=== PATIENT | male | born 2005 | race Caucasian/White ===

== ENCOUNTER 2023-02-06 09:41 | Observation (INO) ==
[2023-02-06 10:47] LABS: Basophils # (auto) 0.03 K/uL (0.00-0.20); Basophils % (auto) 0.4 %; Eosinophils # (auto) 0.17 K/uL (0.00-0.50); Eosinophils % (auto) 2.2 %; Hematocrit (blood only) 46.1 % (42.0-52.0); Hemoglobin 16.2 g/dl (14.0-18.0); Immature Granulocytes # (auto) 0.03 K/uL (0.01-0.20); Immature Granulocytes % (auto) 0.4 %; Lymphocytes # (auto) 1.78 K/uL (1.20-3.40); Lymphocytes % (auto) 23.4 %; Mean Corpuscular Hgb Conc 35.1 g/dL (32.0-36.0); Mean Corpuscular Volume 88.1 fL (80.0-100.0); Mean Platelet Volume 11.6 fL (9.4-12.4); Monocytes % (auto) 9.2 %; Neutrophils # (auto) 4.91 K/uL (1.40-6.50); Neutrophils % (auto) 64.4 %; Platelet Count 222 K/uL (130-400); RDW Coefficient of Variation 13.1 % (11.5-14.5); RDW Standard Deviation 42.5 fL (36.4-46.3); Red Blood Count 5.23 M/uL (4.70-6.10); White Blood Count 7.62 K/ul (4.8-10.8)
[2023-02-06] MEDS ORDERED: ONDANSETRON INJ 2 MG/ML 2 ML VIAL IV STA (13:07)
[2023-02-06] MEDS ORDERED: dexAMETHasone**PF** 10 MG/ML VIAL IV ONE (13:07)
[2023-02-06] MEDS ORDERED: KETOROLAC TROMETHAMINE 15 MG/ML VIAL IV STA (13:07)
[2023-02-06] MEDS ORDERED: ACETAMINOPHEN 500 MG TAB PO STA (13:07)
--- NOTE | 2023-02-06 13:08 | Emergency Department Note ---
Impression & Plan Headache, Viral meningitis ED Provider Note NAME: MELISSA RINALDI AGE: 17 SEX: M : 2005 ARRIVES VIA: Walk-In INFORMANT: Patient, ED PROVIDER(S): Aaron Escobedo MD CHIEF COMPLAINT: Headache MEDICAL DECISION MAKING: Patient presents due to concern for headache and upper respiratory associated symptoms with concern for possibility of meningitis. Low suspicion for bacterial meningitis. The patient may exhibit signs of meningeal irritation after further discussion the patient would like proceed with an LP. IV was established blood was obtained and the patient was treated symptomatically. The patient still did have associated headache. CT head obtained which was unremarkable. Patient's bio fire was positive for entero and rhinovirus. Patient's blood work is otherwise grossly unremarkable with a normal white count H&H platelet count and normal kidney function and electrolytes. LP was attempted by myself but was unsuccessful. I did speak with Dr. Leon with radiology who confirmed that Drew Patel PA-C with interventional radiology would be able to perform an IR guided LP. Patient was signed out to Dr. Landeros pending the results of the patient's lumbar puncture and reassessment. Procedures: Lumbar Puncture performed by Dr. Escobedo Indication: Rule out meningitis. Verbal consent was obtained after the risks and benefits were explained, including but not limited to headache, bleeding/clotting, scarring, infection, pain, and bone/joint/nerve damage. At this time, the risks of the procedure are less than the risks of NOT performing the procedure. A time out was taken and the correct patient and site identified. The patient was placed in the left lateral decubitus position and the back was prepped with betadine and draped in the standard fashion. The L4 intervertebral space was identified, anesthetized locally with 1% lidocaine without epinephrine, and the spinal needle was inserted through the skin with the bevel parallel to the dural fibers. The needle was carefully advanced but was unsuccessful. The L3 interviewed vertebral space was identified and anesthetized with 1% lidocaine. A spinal was inserted in the appropriate fashion a second time but no fluid was obtained. The stylet was replaced and the needle was removed. A bandaid was placed and the patient was placed in the supine position. The patient tolerated the procedure well and there were no complications. Discussion w/ other healthcare providers: Dr. Hannah with [facility] orthopedics Dr. Rosa emergency medicine Dr. Leon with radiology Prior /Outside records reviewed: None Differential diagnosis: Migraine headache, tension headache, dehydration, meningitis, sinusitis, CO expo sure, ICH, infection, tumor, sinus thrombosis as well as others were considered. Diagnostics, as interpreted by me: ECG: None Cardiac monitoring: An order was placed for continuous cardiac monitoring. The monitor shows a rate of 85 with sinus rhythm. Patient was placed on pulse oximetry Medical decision rules: None Imaging studies: I informally interpreted the patient's CT head which does not show obvious ICH with formal report to follow. HPI: Pt is a 17 yo male who presents to the ED for headache. Pt states that he started to feel ill on Sunday and has since started to take multiple cold and flu medications and ibuprofen. Since then he has gotten a headache that has been progressively worse by the day. He states this morning when he woke up, the headache was so bad that he nearly vomited. He states the pain is all over his whole head and is worse when he moves his eyes around. He denies any vision changes, no chest pain or shortness of breath. No rashes. He denies alcohol use over the past few days and states he has been keeping hydrated. He notes that he plays football and last week had a concussion on Sunday, but was cleared to play again yesterday and that he feels his concussion symptoms like the headache he had then are different from now and have resolved. He notes frontal sinus pressure but no rhinorrhea, sore throat, or cough. He notes that he got his men ingitis vaccine. No other complaints at this time. Patient was referred here by Dr. Hannah PAST MEDICAL HISTORY: No pertinent past medical history PAST SURGICAL HISTORY: No pertinent past surgical history SOCIAL HISTORY: [employer] student. Does play varsity football. Denies alcohol tobacco or drug use. HOME MEDICATIONS: See Below ALLERGIES: See Below VITALS: See Below PHYSICAL EXAMINATION: GENERAL: NAD, non-toxic. EYE EXAM: Normal conjunctiva. PERRL, no anisocoria and EOM's grossly intact w/o pain. Mild photophobia. OROPHARYNX: Moist mucus membranes, grossly normal dentition. NECK: Supple, no nuchal rigidity, no adenopathy, non-tender. No signs of meningismus. FROM of the neck with good chin to chest and neck extension. No stridor. LUNGS: Clear to auscultation. Normal chest wall mechanics. HEART: NSR, no MRG. ABDOMEN: Abdomen soft, non-tender, no masses, no rebound or guarding. BACK: No CVA TTP. SKIN: No rashes and no bruising. UPPER EXTREMITIES: Upper extremities are grossly normal. LOWER EXTREMITIES: Grossly normal, no edema. Possible positive Kernig's. NEURO EXAM: A&O x3, cranial nerves II-XII grossly intact, normal speech, moves all 4 extremities. Good bxnuvo-es-cutx, no drift and no sensory deficits. Past Med/Surg History Social History Smoking Status: Never smoker Second Hand Exposure: No; Do You Dip or Chew Tobacco: No; Hx Alcohol Use: Yes Alcohol type: hard liquor Hx Substance Use: No Preferred Language: Welsh Communication Ability: Effective Stress Engineer Required: No Beliefs That Will Affect Care: None Current Living Situation Comment: appartment Feels Safe at Home: Yes Assistive Devices: None Allergies Allergies Allergy/AdvReac Type Severity Reaction Status Date / Time amoxicillin Allergy Intermediate Hives Unverified 02/06/23 14:50 Results & Data (ED) Vital Signs Vital Signs - 24 hr 02/06/23 10:05 Temperature 36.5 C Temperature Source Temporal Artery Scan Pulse Rate 62 Respiratory Rate 18 Respiratory Effort / Characteristics Non-Labored Respiratory Depth Normal Blood Pressure 125/82 Blood Pressure Mean 96 Pulse Oximetry 98 Oxygen Delivery Method Room Air Sepsis Recent Fever Within 48 Hours No Sepsis New/Unexplained Change in Mental Status No Sepsis Action Taken by Nursing No Action Required Home Medications Current Medication List: was personally reviewed by me Laboratory Data Attestation: I reviewed the patient's lab results. 02/06/23 10:33 02/06/23 12:46 Lab Results 02/06/23 02/06/23 02/06/23 Range/Units 10:33 10:33 10:33 WBC 7.62 (4.8-10.8) K/ul RBC 5.23 (4.70-6.10) M/uL Hgb 16.2 (14.0-18.0) g/dl Hct 46.1 (42.0-52.0) % MCV 88.1 (80.0-100.0) fL MCH 31.0 (25.0-34.0) pg MCHC 35.1 (32.0-36.0) g/dL RDW Std Deviation 42.5 (36.4-46.3) fL RDW Coeff of Shlomo 13.1 (11.5-14.5) % Plt Count 222 (130-400) K/uL MPV 11.6 (9.4-12.4) fL Immature Gran % (Auto) 0.4 % Neut % (Auto) 64.4 % Lymph % (Auto) 23.4 % [place] % (Auto) 9.2 % Eos % (Auto) 2.2 % Baso % (Auto) 0.4 % Neut # (Auto) 4.91 (1.40-6.50) K/uL Lymph # (Auto) 1.78 (1.20-3.40) K/uL [place] # (Auto) 0.70 H (0.11-0.59) K/uL Eos # (Auto) 0.17 (0.00-0.50) K/uL Baso # (Auto) 0.03 (0.00-0.20) K/uL Immature Gran # (Auto) 0.03 (0.01-0.20) K/uL Sodium Cancelled Cancelled Potassium Cancelled Cancelled Chloride Cancelled Cancelled Carbon Dioxide Cancelled Cancelled Anion Gap Cancelled Cancelled BUN Cancelled Cancelled Creatinine Cancelled Cancelled Est Cr Clr Drug Dosing Cancelled Cancelled Est GFR ( Amer) Cancelled Cancelled Est GFR (Non-Af Amer) Cancelled Cancelled BUN/Creatinine Ratio Cancelled Cancelled Glucose Cancelled Cancelled Lactate (0.4-2.0) mmol/L Calcium Cancelled Cancelled Total Bilirubin Cancelled Cancelled AST Cancelled Cancelled ALT Cancelled Cancelled Alkaline Phosphatase Cancelled Cancelled Total Protein Cancelled Cancelled Albumin Cancelled Cancelled Globulin Cancelled Cancelled Albumin/Globulin Ratio Cancelled Cancelled Fluid Comment CSF Appearance CSF Color Xanthrochromic CSF WBC (Auto) (0-5) /uL CSF WBC (0-5) CSF RBC (Auto) (0-) /uL CSF RBC (0-) CSF Cell Count Tube # CSF Mononuclear WBCs % % CSF Polynuclear WBCs % % CSF Chemistry Tube # CSF Glucose (40-70) mg/dl CSF Total Protein (15-45) mg/dl CSF C.neoform/gat PCR (NotDetected) CSF CMV DNA (PCR) (NotDetected) CSF Enterovirus (PCR) (NotDetected) CSF E. coli K1 (PCR) (NotDetected) CSF H. influenzae (PCR) (NotDetected) CSF HSV I (PCR) (NotDetected) CSF HSV II (PCR) (NotDetected) CSF HHV 6 (PCR) (NotDetected) CSF L.monocytogenes PCR (NotDetected) CSF N. meningitidis PCR (NotDetected) CSF Parechovirus (PCR) (NotDetected) CSF S. agalactiae (PCR) (NotDetected) CSF S. pneumoniae (PCR) (NotDetected) CSF VZV DNA (PCR) (NotDetected) Adenovirus (PCR) (NotDetected) B. pertussis DNA (PCR) (NotDetected) B.parapertussis DNA PCR (NotDetected) C. pneumoniae DNA (PCR) (NotDetected) Coronavirus OC43 (PCR) (NotDetected) Coronavirus HKU1 (PCR) (NotDetected) Coronavirus 229E (PCR) (NotDetected) SARS-CoV-2 (PCR) (NotDetected) Coronavirus NL63 (PCR) (NotDetected) Human Metapneumovir PCR (NotDetected) Influenza Type A (PCR) (NotDetected) Influenza Type B (PCR) (NotDetected) M. pneumoniae (PCR) (NotDetected) Parainfluenza 1 (PCR) (NotDetected) Parainfluenza 2 (PCR) (NotDetected) Parainfluenza 3 (PCR) (NotDetected) Parainfluenza 4 (PCR) (NotDetected) RSV (PCR) (NotDetected) Entero/Rhino (PCR) (NotDetected) Staphylococcus sp PCR (NotDetected) mecA/C-Methicil Resis Gene (NotDetected) Staph epidermidis (PCR) (NotDetected) Bld Cult ID Panel PCR (NotDetected) 02/06/23 02/06/23 02/06/23 Range/Units 12:46 13:36 15:25 WBC (4.8-10.8) K/ul RBC (4.70-6.10) M/uL Hgb (14.0-18.0) g/dl Hct (42.0-52.0) % MCV (80.0-100.0) fL MCH (25.0-34.0) pg MCHC (32.0-36.0) g/dL RDW Std Deviation (36.4-46.3) fL RDW Coeff of Shlomo (11.5-14.5) % Plt Count (130-400) K/uL MPV (9.4-12.4) fL Immature Gran % (Auto) % Neut % (Auto) % Lymph % (Auto) % [place] % (Auto) % Eos % (Auto) % Baso % (Auto) % Neut # (Auto) (1.40-6.50) K/uL Lymph # (Auto) (1.20-3.40) K/uL [place] # (Auto) (0.11-0.59) K/uL Eos # (Auto) (0.00-0.50) K/uL Baso # (Auto) (0.00-0.20) K/uL Immature Gran # (Auto) (0.01-0.20) K/uL Sodium 137 Potassium 4.7 Chloride 103 Carbon Dioxide 29 Anion Gap 5 BUN 15 Creatinine 1.06 Est Cr Clr Drug Dosing 141.3 Est GFR ( Amer) 117.3 Est GFR (Non-Af Amer) 101.2 BUN/Creatinine Ratio 14.2 Glucose 94 Lactate (0.4-2.0) mmol/L Calcium 10.3 Total Bilirubin 0.5 AST 24 ALT 26 Alkaline Phosphatase 101 Total Protein 7.3 Albumin 4.5 Globulin 2.8 Albumin/Globulin Ratio 1.6 Fluid Comment CSF Appearance CSF Color Xanthrochromic CSF WBC (Auto) (0-5) /uL CSF WBC (0-5) CSF RBC (Auto) (0-) /uL CSF RBC (0-) CSF Cell Count Tube # CSF Mononuclear WBCs % % CSF Polynuclear WBCs % % CSF Chemistry Tube # CSF Glucose (40-70) mg/dl CSF Total Protein (15-45) mg/dl CSF C.neoform/gat PCR Not Detected (NotDetected) CSF CMV DNA (PCR) Not Detected (NotDetected) CSF Enterovirus (PCR) DETECTED A* (NotDetected) CSF E. coli K1 (PCR) Not Detected (NotDetected) CSF H. influenzae (PCR) Not Detected (NotDetected) CSF HSV I (PCR) Not Detected (NotDetected) CSF HSV II (PCR) Not Detected (NotDetected) CSF HHV 6 (PCR) DETECTED A* (NotDetected) CSF L.monocytogenes PCR Not Detected (NotDetected) CSF N. meningitidis PCR Not Detected (NotDetected) CSF Parechovirus (PCR) DETECTED A* (NotDetected) CSF S. agalactiae (PCR) Not Detected (NotDetected) CSF S. pneumoniae (PCR) Not Detected (NotDetected) CSF VZV DNA (PCR) Not Detected (NotDetected) Adenovirus (PCR) Not Detected (NotDetected) B. pertussis DNA (PCR) Not Detected (NotDetected) B.parapertussis DNA PCR Not Detected (NotDetected) C. pneumoniae DNA (PCR) Not Detected (NotDetected) Coronavirus OC43 (PCR) Not Detected (NotDetected) Coronavirus HKU1 (PCR) Not Detected (NotDetected) Coronavirus 229E (PCR) Not Detected (NotDetected) SARS-CoV-2 (PCR) Not Detected (NotDetected) Coronavirus NL63 (PCR) Not Detected (NotDetected) Human Metapneumovir PCR Not Detected (NotDetected) Influenza Type A (PCR) Not Detected (NotDetected) Influenza Type B (PCR) Not Detected (NotDetected) M. pneumoniae (PCR) Not Detected (NotDetected) Parainfluenza 1 (PCR) Not Detected (NotDetected) Parainfluenza 2 (PCR) Not Detected (NotDetected) Parainfluenza 3 (PCR) Not Detected (NotDetected) Parainfluenza 4 (PCR) Not Detected (NotDetected) RSV (PCR) Not Detected (NotDetected) Entero/Rhino (PCR) DETECTED A* (NotDetected) Staphylococcus sp PCR (NotDetected) mecA/C-Methicil Resis Gene (NotDetected) Staph epidermidis (PCR) (NotDetected) Bld Cult ID Panel PCR (NotDetected) 02/06/23 02/06/23 02/06/23 Range/Units 15:25 15:25 18:45 WBC (4.8-10.8) K/ul RBC (4.70-6.10) M/uL Hgb (14.0-18.0) g/dl Hct (42.0-52.0) % MCV (80.0-100.0) fL MCH (25.0-34.0) pg MCHC (32.0-36.0) g/dL RDW Std Deviation (36.4-46.3) fL RDW Coeff of Shlomo (11.5-14.5) % Plt Count (130-400) K/uL MPV (9.4-12.4) fL Immature Gran % (Auto) % Neut % (Auto) % Lymph % (Auto) % [place] % (Auto) % Eos % (Auto) % Baso % (Auto) % Neut # (Auto) (1.40-6.50) K/uL Lymph # (Auto) (1.20-3.40) K/uL [place] # (Auto) (0.11-0.59) K/uL Eos # (Auto) (0.00-0.50) K/uL Baso # (Auto) (0.00-0.20) K/uL Immature Gran # (Auto) (0.01-0.20) K/uL Sodium Potassium Chloride Carbon Dioxide Anion Gap BUN Creatinine Est Cr Clr Drug Dosing Est GFR ( Amer) Est GFR (Non-Af Amer) BUN/Creatinine Ratio Glucose Lactate 1.5 (0.4-2.0) mmol/L Calcium Total Bilirubin AST ALT Alkaline Phosphatase Total Protein Albumin Globulin Albumin/Globulin Ratio Fluid Comment CSF Appearance Clear CSF Color Colorless Xanthrochromic No xanthochromia CSF WBC (Auto) 13 H* (0-5) /uL CSF WBC 18 H* (0-5) CSF RBC (Auto) 0 (0-) /uL CSF RBC 2 (0-) CSF Cell Count Tube # 3 CSF Mononuclear WBCs % 90 % CSF Polynuclear WBCs % 10 % CSF Chemistry Tube # 1 CSF Glucose 54 (40-70) mg/dl CSF Total Protein 65.0 H (15-45) mg/dl CSF C.neoform/gat PCR (NotDetected) CSF CMV DNA (PCR) (NotDetected) CSF Enterovirus (PCR) (NotDetected) CSF E. coli K1 (PCR) (NotDetected) CSF H. influenzae (PCR) (NotDetected) CSF HSV I (PCR) (NotDetected) CSF HSV II (PCR) (NotDetected) CSF HHV 6 (PCR) (NotDetected) CSF L.monocytogenes PCR (NotDetected) CSF N. meningitidis PCR (NotDetected) CSF Parechovirus (PCR) (NotDetected) CSF S. agalactiae (PCR) (NotDetected) CSF S. pneumoniae (PCR) (NotDetected) CSF VZV DNA (PCR) (NotDetected) Adenovirus (PCR) (NotDetected) B. pertussis DNA (PCR) (NotDetected) B.parapertussis DNA PCR (NotDetected) C. pneumoniae DNA (PCR) (NotDetected) Coronavirus OC43 (PCR) (NotDetected) Coronavirus HKU1 (PCR) (NotDetected) Coronavirus 229E (PCR) (NotDetected) SARS-CoV-2 (PCR) (NotDetected) Coronavirus NL63 (PCR) (NotDetected) Human Metapneumovir PCR (NotDetected) Influenza Type A (PCR) (NotDetected) Influenza Type B (PCR) (NotDetected) M. pneumoniae (PCR) (NotDetected) Parainfluenza 1 (PCR) (NotDetected) Parainfluenza 2 (PCR) (NotDetected) Parainfluenza 3 (PCR) (NotDetected) Parainfluenza 4 (PCR) (NotDetected) RSV (PCR) (NotDetected) Entero/Rhino (PCR) (NotDetected) Staphylococcus sp PCR (NotDetected) mecA/C-Methicil Resis Gene (NotDetected) Staph epidermidis (PCR) (NotDetected) Bld Cult ID Panel PCR (NotDetected) 02/06/23 Range/Units 19:15 WBC (4.8-10.8) K/ul RBC (4.70-6.10) M/uL Hgb (14.0-18.0) g/dl Hct (42.0-52.0) % MCV (80.0-100.0) fL MCH (25.0-34.0) pg MCHC (32.0-36.0) g/dL RDW Std Deviation (36.4-46.3) fL RDW Coeff of Shlomo (11.5-14.5) % Plt Count (130-400) K/uL MPV (9.4-12.4) fL Immature Gran % (Auto) % Neut % (Auto) % Lymph % (Auto) % [place] % (Auto) % Eos % (Auto) % Baso % (Auto) % Neut # (Auto) (1.40-6.50) K/uL Lymph # (Auto) (1.20-3.40) K/uL [place] # (Auto) (0.11-0.59) K/uL Eos # (Auto) (0.00-0.50) K/uL Baso # (Auto) (0.00-0.20) K/uL Immature Gran # (Auto) (0.01-0.20) K/uL Sodium Potassium Chloride Carbon Dioxide Anion Gap BUN Creatinine Est Cr Clr Drug Dosing Est GFR ( Amer) Est GFR (Non-Af Amer) BUN/Creatinine Ratio Glucose Lactate (0.4-2.0) mmol/L Calcium Total Bilirubin AST ALT Alkaline Phosphatase Total Protein Albumin Globulin Albumin/Globulin Ratio Fluid Comment CSF Appearance CSF Color Xanthrochromic CSF WBC (Auto) (0-5) /uL CSF WBC (0-5) CSF RBC (Auto) (0-) /uL CSF RBC (0-) CSF Cell Count Tube # CSF Mononuclear WBCs % % CSF Polynuclear WBCs % % CSF Chemistry Tube # CSF Glucose (40-70) mg/dl CSF Total Protein (15-45) mg/dl CSF C.neoform/gat PCR (NotDetected) CSF CMV DNA (PCR) (NotDetected) CSF Enterovirus (PCR) (NotDetected) CSF E. coli K1 (PCR) (NotDetected) CSF H. influenzae (PCR) (NotDetected) CSF HSV I (PCR) (NotDetected) CSF HSV II (PCR) (NotDetected) CSF HHV 6 (PCR) (NotDetected) CSF L.monocytogenes PCR (NotDetected) CSF N. meningitidis PCR (NotDetected) CSF Parechovirus (PCR) (NotDetected) CSF S. agalactiae (PCR) (NotDetected) CSF S. pneumoniae (PCR) (NotDetected) CSF VZV DNA (PCR) (NotDetected) Adenovirus (PCR) (NotDetected) B. pertussis DNA (PCR) (NotDetected) B.parapertussis DNA PCR (NotDetected) C. pneumoniae DNA (PCR) (NotDetected) Coronavirus OC43 (PCR) (NotDetected) Coronavirus HKU1 (PCR) (NotDetected) Coronavirus 229E (PCR) (NotDetected) SARS-CoV-2 (PCR) (NotDetected) Coronavirus NL63 (PCR) (NotDetected) Human Metapneumovir PCR (NotDetected) Influenza Type A (PCR) (NotDetected) Influenza Type B (PCR) (NotDetected) M. pneumoniae (PCR) (NotDetected) Parainfluenza 1 (PCR) (NotDetected) Parainfluenza 2 (PCR) (NotDetected) Parainfluenza 3 (PCR) (NotDetected) Parainfluenza 4 (PCR) (NotDetected) RSV (PCR) (NotDetected) Entero/Rhino (PCR) (NotDetected) Staphylococcus sp PCR DETECTED A (NotDetected) mecA/C-Methicil Resis Gene Not Detected (NotDetected) Staph epidermidis (PCR) DETECTED A (NotDetected) Bld Cult ID Panel PCR See PCR Comment (NotDetected) Administered Medications Discontinued Medications Acetaminophen (Acetaminophen 500 Mg Tab) 1,000 mg PO NOW STA Stop: 02/06/23 13:08 Last Admin: 02/06/23 13:34 Dose: 1,000 mg Documented By: FIORELLA Acetaminophen (Acetaminophen 325 Mg Tab) 650 mg PO Q4H PRN PRN Reason: Pain or Fever Stop: 03/08/23 22:38 Last Admin: 02/07/23 22:49 Dose: 650 mg Documented By: Admin: 02/07/23 01:16 Dose: 650 mg Documented By: BRIANNE Dexamethasone Sodium Phosphate (DexamethasonePf 10 Mg/Ml Vial) 10 mg IV NOW ONE Stop: 02/06/23 13:08 Last Admin: 02/06/23 13:23 Dose: 10 mg Documented By: FIORELLA Ceftriaxone Sodium (Rocephin) 2,000 mg in 50 mls @ 100 mls/hr IV NOW STA Stop: 02/06/23 18:17 Last Infusion: 02/06/23 20:02 Dose: 0 mls/hr Documented By: Admin: 02/06/23 19:18 Dose: 100 mls/hr Documented By: BRIANNE Vancomycin HCl 2,000 mg/ (Sodium Chloride) 540 mls @ 200 mls/hr IV NOW ONE Stop: 02/06/23 20:29 Last Admin: 02/06/23 20:05 Dose: 200 mls/hr Documented By: BRIANNE Acyclovir Sodium 500 mg/ (Dextrose) 260 mls @ 250 mls/hr IV NOW ONE; Protocol Stop: 02/06/23 18:50 Last Infusion: 02/06/23 20:43 Dose: 0 mls/hr Documented By: Admin: 02/06/23 19:23 Dose: 250 mls/hr Documented By: BRIANNE Acyclovir Sodium 400 mg/ (Dextrose) 258 mls @ 250 mls/hr IV NOW ONE; Protocol Stop: 02/06/23 21:31 Last Infusion: 02/06/23 23:02 Dose: 0 mls/hr Documented By: Admin: 02/06/23 21:23 Dose: 250 mls/hr Documented By: BRIANNE Vancomycin HCl 1,250 mg/ (Sodium Chloride) 275 mls @ 200 mls/hr IV Q8H [facility] Stop: 02/09/23 03:59 Last Infusion: 02/08/23 05:28 Dose: 0 mls/hr Documented By: Admin: 02/08/23 04:05 Dose: 200 mls/hr Documented By: Infusion: 02/07/23 22:01 Dose: 0 mls/hr Documented By: Admin: 02/07/23 20:28 Dose: 200 mls/hr Documented By: Infusion: 02/07/23 13:58 Dose: 0 mls/hr Documented By: [id number] Admin: 02/07/23 12:27 Dose: 200 mls/hr Documented By: [id number] Infusion: 02/07/23 06:01 Dose: 0 mls/hr Documented By: Admin: 02/07/23 04:37 Dose: 200 mls/hr Documented By: ADARSH Ceftriaxone Sodium 2,000 mg/ (Dextrose) 50 mls @ 100 mls/hr IV Q12H JAYNE; Protocol Stop: 02/09/23 07:59 Last Infusion: 02/08/23 08:58 Dose: 0 mls/hr Documented By: Admin: 02/08/23 08:02 Dose: 100 mls/hr Documented By: Infusion: 02/07/23 20:58 Dose: 0 mls/hr Documented By: Admin: 02/07/23 20:28 Dose: 100 mls/hr Documented By: Infusion: 02/07/23 09:14 Dose: 0 mls/hr Documented By: [id number] Admin: 02/07/23 08:44 Dose: 100 mls/hr Documented By: [id number] Dexamethasone 4 mg/ Syringe 1 mls @ 1 mls/min IV Q8H JAYNE Stop: 03/08/23 22:59 Last Admin: 02/07/23 06:02 Dose: 1 mls/min Documented By: Admin: 02/06/23 23:13 Dose: 1 mls/min Documented By: BRIANNE Acyclovir Sodium 950 mg/ (Dextrose) 269 mls @ 250 mls/hr IV Q8H JAYNE; Protocol Stop: 02/17/23 05:59 Last Infusion: 02/07/23 14:27 Dose: 0 mls/hr Documented By: [id number] Admin: 02/07/23 13:54 Dose: 250 mls/hr Documented By: [id number] Infusion: 02/07/23 07:07 Dose: 0 mls/hr Documented By: Admin: 02/07/23 06:02 Dose: 250 mls/hr Documented By: ADARSH Ketorolac Tromethamine (Ketorolac Tromethamine 15 Mg/Ml Vial) 10 mg IV NOW STA Stop: 02/06/23 13:08 Last Admin: 02/06/23 13:23 Dose: 10 mg Documented By: FIORELLA Melatonin (Melatonin 3 Mg Tab) 9 mg PO HS PRN PRN Reason: Sleep Stop: 03/09/23 00:52 Last Admin: 02/07/23 22:50 Dose: 9 mg Documented By: Admin: 02/07/23 01:16 Dose: 9 mg Documented By: BRIANNE Menthol (Cough Drop (Sugar Free) Chichi 24 Chichi/1 Box) 1 chichi BUCCAL Q2H PRN PRN Reason: Cough Stop: 03/09/23 22:02 Last Admin: 02/07/23 22:28 Dose: 1 chichi Documented By: ADARSH Ondansetron HCl (Ondansetron Inj 2 Mg/Ml 2 Ml Vial) 4 mg IV NOW STA Stop: 02/06/23 13:08 Last Admin: 02/06/23 13:23 Dose: 4 mg Documented By: FIORELLA Imaging Data Radiologist's Impression: Head CT 02/06/23 13:16 CT OF THE HEAD WITHOUT CONTRAST CLINICAL HISTORY: Headache. Pre LP. COMPARISON STUDY: No previous studies for comparison. CT DOSE: 625.8 mGy.cm TECHNIQUE: Helical axial images of the head were obtained without IV contrast. Automated exposure control was utilized for the study. A dose lowering technique was utilized adhering to the principles of ALARA. FINDINGS: No acute intracranial hemorrhage, midline shift or mass effect is present. The ventricular system is unremarkable. The basal cisterns are patent. No extra-axial collections are present. There are no findings to suggest acute dural sinus thrombosis or acute territorial infarct. There are no significant calvarial abnormalities. There are small mucous retention cysts within the right maxillary and left sphenoid sinuses. IMPRESSION: No acute intracranial findings. ACT 112: Negative or not required by law. Electronically signed by: Min Jacobs M.D. 02/06/2023 2:08 PM Lumbar Puncture 02/06/23 14:42 Lumbar puncture under fluoroscopy INDICATION: Headache; evaluate for meningitis PROCEDURE: Procedure and risks were explained. Informed consent was obtained. A final timeout was completed. The patient was placed prone on the fluoroscopic examination table. The lower lumbar region was prepped and draped in sterile fashion. 1% lidocaine was utilized for skin anesthesia. Utilizing fluoroscopic guidance, a 22-gauge spinal needle was advanced into the intrathecal space at the L2-3 disc space level. 2 spot images were obtained. Approximately 8 mL of clear CSF fluid was removed and sent to lab for analysis. The needle was removed and Band-Aid applied. The patient tolerated the procedure well. Vital signs will be monitored postprocedure. Total fluoroscopy time 0.2 minutes. DAP is 0.0379 mcGy/m2. IMPRESSION: Lumbar puncture as above. Performed, dictated, and signed by Gentry Patel PA-C; to be co-signed by Dr. Timmy Leon. Electronically signed by: Timmy Leon M.D. 02/06/2023 4:21 PM Discharge Plan Visit Data Chief Complaint: Headache Stated Complaint: DOC REF,HEADACHE,PRESSURE,NECK PAIN, ED Provider: Yady Landeros Discharge Problem: Headache, Viral meningitis Patient Disposition: Admitted As Inpatient Condition: Good Discharge Instructions Interventions: ED Discharge Assessment Last Done: 02/07/23 01:25
[2023-02-06 13:26] LABS: Albumin Globulin Ratio 1.6 (0.9-2); Albumin Level 4.5 gm/dl (3.4-5.0); BUN Creatinine Ratio 14.2 (10-20); Bilirubin,Total 0.5 mg/dl (0.2-1.0); Calcium 10.3 mg/dl (8.6-10.3); Creatinine Clr Calc Pharmacy 141.3 ml/min; Est GFR (African American) 117.3 ml/min; Est GFR (Non-African American) 101.2 ml/min; Globulin 2.8 gm/dl (2.5-4.0); Potassium 4.7 mmol/L (3.5-5.1); Total Protein 7.3 gm/dl (6.0-8.3)
--- NOTE | 2023-02-06 14:09 | CT Scan Report ---
CT OF THE HEAD WITHOUT CONTRAST CLINICAL HISTORY: Headache. Pre LP. COMPARISON STUDY: No previous studies for comparison. CT DOSE: 625.8 mGy.cm TECHNIQUE: Helical axial images of the head were obtained without IV contrast. Automated exposure con trol was utilized for the study. A dose lowering technique was utilized adhering to the principles o f ALARA. FINDINGS: No acute intracranial hemorrhage, midline shift or mass effect is present. The ventricular system is unremarkable. The basal cisterns are patent. No extra-axial collections are present. There are no findings to suggest acute dural sinus thrombosis or acute territorial infarct. There are no si gnificant calvarial abnormalities. There are small mucous retention cysts within the right maxillary and left sphenoid sinuses. IMPRESSION: No acute intracranial findings. ACT 112: Negative or not required by law. Electronically signed by: Min Jacobs M.D. 02/06/2023 2:08 PM
[2023-02-06 14:52] LABS: Adenovirus PCR Not Detected (NotDetected); Bordetella parapertussis PCR Not Detected (NotDetected); Bordetella pertussis PCR Not Detected (NotDetected); Chlamydia pneumoniae PCR Not Detected (NotDetected); Coronavirus 229E PCR Not Detected (NotDetected); Coronavirus CoV-2 (COVID19)PCR Not Detected (NotDetected); Coronavirus HKU1 PCR Not Detected (NotDetected); Coronavirus NL63 PCR Not Detected (NotDetected); Coronavirus OC43PCR Not Detected (NotDetected); Human Metapneumovirus PCR Not Detected (NotDetected); Influenza A PCR Not Detected (NotDetected); Influenza B PCR Not Detected (NotDetected); Mycoplasma pneumoniae PCR Not Detected (NotDetected); Parainfluenza Virus 1 PCR Not Detected (NotDetected); Parainfluenza Virus 2 PCR Not Detected (NotDetected); Parainfluenza Virus 3 PCR Not Detected (NotDetected); Parainfluenza Virus 4 PCR Not Detected (NotDetected); Respiratory Syncytial VirusPCR Not Detected (NotDetected)
[2023-02-06 15:05] LABS: Rhinovirus/Enterovirus PCR DETECTED (NotDetected)
--- NOTE | 2023-02-06 15:57 | Fluoroscopy Report ---
Lumbar puncture under fluoroscopy INDICATION: Headache; evaluate for meningitis PROCEDURE: Procedure and risks were explained. Informed consent was obtained. A final timeout was com pleted. The patient was placed prone on the fluoroscopic examination table. The lower lumbar region w as prepped and draped in sterile fashion. 1% lidocaine was utilized for skin anesthesia. Utilizing fluoroscopic guidance, a 22-gauge spinal needle was advanced into the intrathecal space at the L2-3 disc space level. 2 spot images were obtained. Approximately 8 mL of clear CSF fluid was rem yumiko and sent to lab for analysis. The needle was removed and Band-Aid applied. The patient tolerated the procedure well. Vital signs will be monitored postprocedure. Total fluoroscopy time 0.2 minutes. DAP is 0.0379 mcGy/m2. IMPRESSION: Lumbar puncture as above. Performed, dictated, and signed by Gentry Patel PA-C; to be co-signed by Dr. Timmy Leon. Electronically signed by: Timmy Leon M.D. 02/06/2023 4:21 PM
[2023-02-06 17:11] LABS: Appearance CSF Clear; CSF Count Tube # 3; CSF Xanthrochromic No xanthochromia; Color CSF Colorless
[2023-02-06 17:12] LABS: Red Blood Cell CSF Auto 0 /uL (0-)
[2023-02-06 17:13] LABS: White Blood Cell CSF Auto 13 /uL (0-5)
[2023-02-06 17:14] LABS: Cryptococcus neoformans/ga PCR Not Detected (NotDetected); Cytomegalovirus PCR Not Detected (NotDetected); Escherichia coli K1 PCR Not Detected (NotDetected); Haemophilius influenzae PCR Not Detected (NotDetected); Herpes Simplex Virus 1 PCR Not Detected (NotDetected); Herpes Simplex Virus 2 PCR Not Detected (NotDetected); Listeria monocytogenes PCR Not Detected (NotDetected); Neisseria meningitidis PCR Not Detected (NotDetected); Streptococcus agalactiae PCR Not Detected (NotDetected); Streptococcus pneumoniae PCR Not Detected (NotDetected); Varicella Zoster Virus PCR Not Detected (NotDetected)
[2023-02-06 17:17] LABS: Enterovirus PCR DETECTED (NotDetected); Human Herpes Virus 6 PCR DETECTED (NotDetected); Human Parechovirus PCR DETECTED (NotDetected)
[2023-02-06 17:22] LABS: Mononuclear WBC CSF Manual 90 %; Polynuclear WBC CSF Manual 10 %
[2023-02-06] MEDS ORDERED: cefTRIAXone SODIUM 2,000 MG/50 ML BAG IV STA (17:48)
[2023-02-06] MEDS ORDERED: VANCOMYCIN HCL 2,000 MG in SODIUM CHLORIDE 0.9% 500 ML IV ONE (17:48)
[2023-02-06] MEDS ORDERED: ACYCLOVIR SOD 500 MG in DEXTROSE 5% 250 ML IV ONE (17:48)
[2023-02-06] MEDS ORDERED: VANCOMYCIN CONSULT ACTIVE PRN ×2 (17:48→22:39)
--- NOTE | 2023-02-06 19:15 | Emergency Department Note ---
ED Visit Note Patient was signed out to me by Dr. Escobedo at 1519. Was pending lumbar puncture results. Laboratory work-up per my interpretation showed normal WBC; stable electrolytes. Lumbar puncture showed 18 WBCs in the CSF. Bio fire of the CSF did show 3 viral etiologies, including enterovirus, parechovirus and HHV-6 infection. Patient's respiratory bio fire was positive for enterovirus. Discussed results with the patient and his mother via phone. Patient still complaining of a headache and has positive meningeal signs on examination. Blood cultures and lactate laboratory work-up was added to the patient's work-up, given his profound viral meningitis etiologies. Started the patient on IV vancomycin, Rocephin and acyclovir. Discussed case with social security specialist for admission. Discussed case with inpatient hospitalist Dr. Orr. Patient to be admitted to [facility] hospitalist service for further evaluation and management Diagnosis: viral meningitis; headache Plan: admit .
--- NOTE | 2023-02-06 20:14 | History & Physical Report ---
Date of Service February 06, 2023 Assessment & Plan (1) Viral meningitis: Plan Viral meningitis- Cerebrospinal fluid- WBC 18, glucose 54, total protein 65.0. Enterovirus detected, HHV-6 detected, Parechovirus detected Serology BioFire positive for enterovirus/rhinovirus From the ED received the following: Vancomycin 2 g IV, Toradol 10 mg IV, dexamethasone 10 mg IV, Zofran 4 mg IV, ceftriaxone 2 g IV, acyclovir 500 mg IV and Tylenol 1 g p.o. Given additional 400 mg IV acyclovir now, then 900 mg IV every 8 hours Vancomycin IV per pharmacokinetic monitoring Dexamethasone 4 mg IV every 8 hours Ceftriaxone 2 g IV every 12 hours Zofran 4 mg IV every 6 hours as needed Droplet isolation x24 hours Of note, patient is currently in the concussion protocol per the [employer] football team History of Present Illness Chief Complaint: The patient presents to the emergency department with symptoms that began as a head cold with congestion about 1 week ago, has gradually worsened up until this morning, where he developed a severe headache with nausea, presented to his outpatient physician, who then referred him to the ED for assessment Primary Care Provider: [facility] The patient is a 17-year-old male with no significant past medical history, who presents to the emergency department with worsening symptoms over the past week, which significantly intensified with severe headache with nausea this morning. He denies any recent sick exposures that he is aware of, but does travel routinely with the football team. He reports that he was diagnosed with strep throat at the onset of the symptoms, and was treated with a course of antibiotics which he did complete as directed Allergies Allergy/AdvReac Type Severity Reaction Status Date / Time amoxicillin Allergy Intermediate Hives Unverified 02/06/23 14:50 Home Medications Medication Instructions Recorded Confirmed Type pseudoephedrine-ibuprofen 30 1 tab PO Q4H PRN cold 02/06/23 02/06/23 History mg-200 mg tablet (Ibuprofen Cold-Sinus (with pseudoephedrine)) Past Med/Surg History Social History Smoking Status: Never smoker Feels Safe at Home: Yes Review of Systems Review of Systems: The patient denies chest pain, palpitations, shortness of breath, dyspnea on exertion, cough, lower extremity swelling, fevers, chills, sweats, weight change, fatigue, nausea, vomiting, diarrhea , constipation, abdominal pain, pelvic pain, blood in urine or stool, dysuria, urinary frequency or urgency, memory loss, loss of consciousness, rash, abnormal bruising or bleeding, imbalance, focal or generalized weakness, numbness or tingling in arms or legs, generalized arthralgias or myalgias, back or neck pain, or night sweats. The review of systems is otherwise negative other than for that already noted above, and at least 10 systems have been reviewed. Physical Exam Physical Exam: The patient is awake, alert and oriented 3, well developed and well nourished, normocephalic and atraumatic, lying in bed and in no acute distress. HEENT--PERRL, EOMI, mucous membranes and oropharynx normal Neck--supple. No JVD. No bruits. Thyroid normal, trachea midline, no adenopathy. Heart--normal S1 and S2. No murmurs, rubs or gallops. Lungs--clear bilaterally, no respiratory distress, no accessory muscle use. Abdomen--normal bowel sounds and soft. Nontender. Nondistended, no hernias or masses, no organomegaly. Extremities--no cyanosis or clubbing. No edema. There are good distal pulses b/l. Dermatologic--normal skin turgor, normal color, no abnormal lymph nodes, no rash. Neurologic--cranial nerves II through XII grossly intact. Rheumatologic--normal range of motion. Psychiatric--normal affect. Results & Data Results & Data Vital Signs (Past 12 Hours) Vital Signs Temp Pulse Pulse Resp BP BP Pulse Ox 02/06/23 19:09 57 L 02/06/23 16:26 56 L 18 99 02/06/23 16:11 69 18 123/69 100 02/06/23 15:56 66 18 111/69 99 02/06/23 15:51 52 L 18 121/81 99 02/06/23 13:21 52 L 18 146/97 H 100 02/06/23 10:05 36.5 C 62 18 125/82 98 O2 Del Method 02/06/23 19:09 02/06/23 16:26 02/06/23 16:11 02/06/23 15:56 02/06/23 15:51 02/06/23 13:21 Room Air 02/06/23 10:05 Room Air Laboratory Results Laboratory Results WBC 7.62 K/ul (4.8-10.8) 02/06/23 10:33 RBC 5.23 M/uL (4.70-6.10) 02/06/23 10:33 Hgb 16.2 g/dl (14.0-18.0) 02/06/23 10:33 Hct 46.1 % (42.0-52.0) 02/06/23 10:33 MCV 88.1 fL (80.0-100.0) 02/06/23 10:33 MCH 31.0 pg (25.0-34.0) 02/06/23 10:33 MCHC 35.1 g/dL (32.0-36.0) 02/06/23 10:33 RDW Std Deviation 42.5 fL (36.4-46.3) 02/06/23 10:33 RDW Coeff of Shlomo 13.1 % (11.5-14.5) 02/06/23 10:33 Plt Count 222 K/uL (130-400) 02/06/23 10:33 MPV 11.6 fL (9.4-12.4) 02/06/23 10:33 Immature Gran % (Auto) 0.4 % 02/06/23 10:33 Neut % (Auto) 64.4 % 02/06/23 10:33 Lymph % (Auto) 23.4 % 02/06/23 10:33 [place] % (Auto) 9.2 % 02/06/23 10:33 Eos % (Auto) 2.2 % 02/06/23 10:33 Baso % (Auto) 0.4 % 02/06/23 10:33 Neut # (Auto) 4.91 K/uL (1.40-6.50) 02/06/23 10:33 Lymph # (Auto) 1.78 K/uL (1.20-3.40) 02/06/23 10:33 [place] # (Auto) 0.70 K/uL (0.11-0.59) H 02/06/23 10:33 Eos # (Auto) 0.17 K/uL (0.00-0.50) 02/06/23 10:33 Baso # (Auto) 0.03 K/uL (0.00-0.20) 02/06/23 10:33 Immature Gran # (Auto) 0.03 K/uL (0.01-0.20) 02/06/23 10:33 Sodium 137 mmol/L (136-145) 02/06/23 12:46 Potassium 4.7 mmol/L (3.5-5.1) 02/06/23 12:46 Chloride 103 mmol/L (98-107) 02/06/23 12:46 Carbon Dioxide 29 mmol/L (21-32) 02/06/23 12:46 Anion Gap 5 (3-11) 02/06/23 12:46 BUN 15 mg/dl (6-23) 02/06/23 12:46 Creatinine 1.06 mg/dl (0.6-1.4) 02/06/23 12:46 Est Cr Clr Drug Dosing 141.3 ml/min 02/06/23 12:46 Est GFR ( Amer) 117.3 ml/min 02/06/23 12:46 Est GFR (Non-Af Amer) 101.2 ml/min 02/06/23 12:46 BUN/Creatinine Ratio 14.2 (10-20) 02/06/23 12:46 Glucose 94 mg/dl (70-99(Fasting)) 02/06/23 12:46 Lactate 1.5 mmol/L (0.4-2.0) 02/06/23 18:45 Calcium 10.3 mg/dl (8.6-10.3) 02/06/23 12:46 Total Bilirubin 0.5 mg/dl (0.2-1.0) 02/06/23 12:46 AST 24 U/L (13-39) 02/06/23 12:46 ALT 26 U/L (7-52) 02/06/23 12:46 Alkaline Phosphatase 101 U/L (34-104) 02/06/23 12:46 Total Protein 7.3 gm/dl (6.0-8.3) 02/06/23 12:46 Albumin 4.5 gm/dl (3.4-5.0) 02/06/23 12:46 Globulin 2.8 gm/dl (2.5-4.0) 02/06/23 12:46 Albumin/Globulin Ratio 1.6 (0.9-2) 02/06/23 12:46 Fluid Comment 02/06/23 15:25 CSF Appearance Clear 02/06/23 15:25 CSF Color Colorless 02/06/23 15:25 Xanthrochromic No xanthochromia 02/06/23 15:25 CSF WBC (Auto) 13 /uL (0-5) H* 02/06/23 15:25 CSF WBC 18 (0-5) H* 02/06/23 15:25 CSF RBC (Auto) 0 /uL (0-) 02/06/23 15:25 CSF RBC 2 (0-) 02/06/23 15:25 CSF Cell Count Tube # 3 02/06/23 15:25 CSF Mononuclear WBCs % 90 % 02/06/23 15:25 CSF Polynuclear WBCs % 10 % 02/06/23 15:25 CSF Chemistry Tube # 1 02/06/23 15:25 CSF Glucose 54 mg/dl (40-70) 02/06/23 15:25 CSF Total Protein 65.0 mg/dl (15-45) H 02/06/23 15:25 CSF C.neoform/gat PCR Not Detected (NotDetected) 02/06/23 15:25 CSF CMV DNA (PCR) Not Detected (NotDetected) 02/06/23 15:25 CSF Enterovirus (PCR) DETECTED (NotDetected) A* 02/06/23 15:25 CSF E. coli K1 (PCR) Not Detected (NotDetected) 02/06/23 15:25 CSF H. influenzae (PCR) Not Detected (NotDetected) 02/06/23 15:25 CSF HSV I (PCR) Not Detected (NotDetected) 02/06/23 15:25 CSF HSV II (PCR) Not Detected (NotDetected) 02/06/23 15:25 CSF HHV 6 (PCR) DETECTED (NotDetected) A* 02/06/23 15:25 CSF L.monocytogenes PCR Not Detected (NotDetected) 02/06/23 15:25 CSF N. meningitidis PCR Not Detected (NotDetected) 02/06/23 15:25 CSF Parechovirus (PCR) DETECTED (NotDetected) A* 02/06/23 15:25 CSF S. agalactiae (PCR) Not Detected (NotDetected) 02/06/23 15:25 CSF S. pneumoniae (PCR) Not Detected (NotDetected) 02/06/23 15:25 CSF VZV DNA (PCR) Not Detected (NotDetected) 02/06/23 15:25 Adenovirus (PCR) Not Detected (NotDetected) 02/06/23 13:36 B. pertussis DNA (PCR) Not Detected (NotDetected) 02/06/23 13:36 B.parapertussis DNA PCR Not Detected (NotDetected) 02/06/23 13:36 C. pneumoniae DNA (PCR) Not Detected (NotDetected) 02/06/23 13:36 Coronavirus OC43 (PCR) Not Detected (NotDetected) 02/06/23 13:36 Coronavirus HKU1 (PCR) Not Detected (NotDetected) 02/06/23 13:36 Coronavirus 229E (PCR) Not Detected (NotDetected) 02/06/23 13:36 SARS-CoV-2 (PCR) Not Detected (NotDetected) 02/06/23 13:36 Coronavirus NL63 (PCR) Not Detected (NotDetected) 02/06/23 13:36 Human Metapneumovir PCR Not Detected (NotDetected) 02/06/23 13:36 Influenza Type A (PCR) Not Detected (NotDetected) 02/06/23 13:36 Influenza Type B (PCR) Not Detected (NotDetected) 02/06/23 13:36 M. pneumoniae (PCR) Not Detected (NotDetected) 02/06/23 13:36 Parainfluenza 1 (PCR) Not Detected (NotDetected) 02/06/23 13:36 Parainfluenza 2 (PCR) Not Detected (NotDetected) 02/06/23 13:36 Parainfluenza 3 (PCR) Not Detected (NotDetected) 02/06/23 13:36 Parainfluenza 4 (PCR) Not Detected (NotDetected) 02/06/23 13:36 RSV (PCR) Not Detected (NotDetected) 02/06/23 13:36 Entero/Rhino (PCR) DETECTED (NotDetected) A* 02/06/23 13:[address] 02/06/23 13:16 CT OF THE HEAD WITHOUT CONTRAST CLINICAL HISTORY: Headache. Pre LP. COMPARISON STUDY: No previous studies for comparison. CT DOSE: 625.8 mGy.cm TECHNIQUE: Helical axial images of the head were obtained without IV contrast. Automated exposure control was utilized for the study. A dose lowering technique was utilized adhering to the principles of ALARA. FINDINGS: No acute intracranial hemorrhage, midline shift or mass effect is present. The ventricular system is unremarkable. The basal cisterns are patent. No extra-axial collections are present. There are no findings to suggest acute dural sinus thrombosis or acute territorial infarct. There are no significant calvarial abnormalities. There are small mucous retention cysts within the right maxillary and left sphenoid sinuses. IMPRESSION: No acute intracranial findings. ACT 112: Negative or not required by law. Electronically signed by: Min Jacobs M.D. 02/06/2023 2:08 PM Lumbar Puncture 02/06/23 14:42 Lumbar puncture under fluoroscopy INDICATION: Headache; evaluate for meningitis PROCEDURE: Procedure and risks were explained. Informed consent was obtained. A final timeout was completed. The patient was placed prone on the fluoroscopic examination table. The lower lumbar region was prepped and draped in sterile fashion. 1% lidocaine was utilized for skin anesthesia. Utilizing fluoroscopic guidance, a 22-gauge spinal needle was advanced into the intrathecal space at the L2-3 disc space level. 2 spot images were obtained. Approximately 8 mL of clear CSF fluid was removed and sent to lab for analysis. The needle was removed and Band-Aid applied. The patient tolerated the procedure well. Vital signs will be monitored postprocedure. Total fluoroscopy time 0.2 minutes. DAP is 0.0379 mcGy/m2. IMPRESSION: Lumbar puncture as above. Performed, dictated, and signed by Gentry Patel PA-C; to be co-signed by Dr. Timmy Leon. Electronically signed by: Timmy Leon M.D. 02/06/2023 4:21 PM Code Status & VTE Plan Code Status Full code VTE Prophylaxis Plan VTE Prophylaxis will be ordered: Yes PG Care Time/CCT Total # of Minutes Spent Total Time Spent with Patient: Total time spent is greater than 50% in coordination of care (as documented) at patient's floor/unit and/or counseling patient: Coding Level of Care Code 75320 INT INP/OBS CARE 3/75MIN Diagnoses Viral meningitis A87.9
[2023-02-06] MEDS ORDERED: ACYCLOVIR SOD 400 MG in DEXTROSE 5% 250 ML IV ONE (20:30)
[2023-02-06] MEDS ORDERED: ONDANSETRON INJ 2 MG/ML 2 ML VIAL IV PRN (22:39)
[2023-02-06] MEDS: dexAMETHasone 4 MG in SYRINGE 0 ML IV SCH (23:13)
[2023-02-07] MEDS: ACETAMINOPHEN 325 MG TAB PO PRN ×2 (01:16→22:49)
[2023-02-07] MEDS: MELATONIN 3 MG TAB PO PRN ×2 (01:16→22:50)
[2023-02-07] MEDS: VANCOMYCIN HCL 1,250 MG in SODIUM CHLORIDE 0.9% 250 ML IV SCH ×3 (04:37→20:28)
[2023-02-07 05:36] LABS: Albumin Globulin Ratio 1.7 (0.9-2); Albumin Level 4.3 gm/dl (3.4-5.0); BUN Creatinine Ratio 20.2 (10-20); Bilirubin,Total 0.4 mg/dl (0.2-1.0); Calcium 9.7 mg/dl (8.6-10.3); Creatinine Clr Calc Pharmacy 157.1 ml/min; Est GFR (African American) 120.1 ml/min; Est GFR (Non-African American) 103.6 ml/min; Globulin 2.6 gm/dl (2.5-4.0); Magnesium 1.9 mg/dl (1.7-2.4); Potassium 4.2 mmol/L (3.5-5.1); Total Protein 6.9 gm/dl (6.0-8.3)
[2023-02-07 05:50] LABS: Basophils # (auto) 0.01 K/uL (0.00-0.20); Basophils % (auto) 0.1 %; Hematocrit (blood only) 43.3 % (42.0-52.0); Immature Granulocytes # (auto) 0.05 K/uL (0.01-0.20); Immature Granulocytes % (auto) 0.5 %; Lymphocytes # (auto) 1.34 K/uL (1.20-3.40); Lymphocytes % (auto) 14.3 %; Mean Corpuscular Hemoglobin 30.7 pg (25.0-34.0); Mean Corpuscular Hgb Conc 34.6 g/dL (32.0-36.0); Mean Corpuscular Volume 88.7 fL (80.0-100.0); Mean Platelet Volume 11.4 fL (9.4-12.4); Monocytes # (auto) 0.45 K/uL (0.11-0.59); Monocytes % (auto) 4.8 %; Neutrophils # (auto) 7.55 K/uL (1.40-6.50); Neutrophils % (auto) 80.3 %; Platelet Count 238 K/uL (130-400); RDW Coefficient of Variation 12.6 % (11.5-14.5); RDW Standard Deviation 41.5 fL (36.4-46.3); Red Blood Count 4.88 M/uL (4.70-6.10)
[2023-02-07] MEDS: ACYCLOVIR SOD 950 MG in DEXTROSE 5% 250 ML IV SCH ×2 (06:02→13:54)
[2023-02-07] MEDS: dexAMETHasone 4 MG in SYRINGE 0 ML IV SCH (06:02)
--- NOTE | 2023-02-07 06:50 | Hospitalist Progress Note ---
Date of Service February 07, 2023 Assessment & Plan (1) Viral meningitis: Plan Patient is a 17-year-old male who presents to the hospital with severe headache and nausea. Symptoms started over the last week and got significantly worse on Sunday. Of note patient suffered a concussion at practice last Sunday and has been in concussion protocol. He has mostly stayed at home and rested during this time. 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 #Viral meningitis -Head CT negative -Cerebrospinal fluid -WBC 18, glucose 54, total protein 65.0. Enterovirus detected, HHV-6 detected, Parechovirus detected -Serology BioFire positive for enterovirus/rhinovirus -In the ED received: vancomycin, Toradol, dexamethasone, Zofran, ceftriaxone, acyclovir, and Tylenol. -Initially started on vancomycin, ceftriaxone, acyclovir, and dexamethasone. -Infectious disease curbside: -Continue with vancomycin and ceftriaxone. Follow cultures from cerebrospinal fluid. -Given that the patient is not immunocompromise and is not encephalopathic, will manage viral meningitis with supportive care. -We will follow cultures, if negative then may return home tomorrow and continue supportive care. -Patient will need follow-up with [facility] orthopedics after discharge regarding return to play. Given that patient is currently in concussion protocol would advise caution that postconcussion symptoms may be related to meningitis rather than concussion and that any postconcussion symptoms should be evaluated by a physician. Admission and Anticipated Discharge Date Admission Date: February 06, 2023 Supervising Physician Co-Signing Physician Notes I personally examined the patient and verified all perez points of history and exam, discussed case, and agree with decision making with Dr Nova feeling good overall. walking in room. feels much better. vitals noted nad heent nc at mmm breathing unlabored no accessory muscles good effort skin no rashes no pallor or icterus. labs/diagnostics noted viral meningitis - continue abx pending final culture results. On review, no need for antivirals or steroidswhile HHV-6 might require antiviral treatment in an encephalitis situation or immunocompromised patient, he shows neither, and is doing extremely well. Anticipate home tomorrow. Subjective Patient was seen bedside this morning. Denies any issues or concerns at this point. States that he is feeling a lot better since coming in to the hospital Review of Systems Review of Systems: All systems reviewed & are unremarkable except as noted in Subjective Physical Exam Physical Exam: The patient is awake, alert and oriented 3, well developed and well nourished, normocephalic and atraumatic, lying in bed and in no acute distress. HEENT--PERRL, EOMI, mucous membranes and oropharynx normal Neck--supple. No JVD. No bruits. Thyroid normal, trachea midline, no ad enopathy. Heart--normal S1 and S2. No murmurs, rubs or gallops. Lungs--clear bilaterally, no respiratory distress, no accessory muscle use. Abdomen--normal bowel sounds and soft. Nontender. Nondistended, no hernias or masses, no organomegaly. Extremities--no cyanosis or clubbing. No edema. There are good distal pulses b/l. Dermatologic--normal skin turgor, normal color, no abnormal lymph nodes, no rash. Neurologic--cranial nerves II through XII grossly intact. Rheumatologic--normal range of motion. Psychiatric--normal affect. Results & Data Results & Data Vital Signs (Past 12 Hours) Vital Signs Temp Pulse Pulse Resp BP BP Pulse Ox 02/07/23 02:05 61 02/07/23 01:59 36.5 C 62 18 135/79 97 02/07/23 01:34 65 02/07/23 01:30 66 15 143/81 H 100 02/07/23 01:00 64 21 152/89 H 100 02/07/23 00:40 67 19 151/81 H 98 02/06/23 23:59 02/06/23 23:59 18 99 02/06/23 22:29 71 18 141/82 H 98 02/06/23 21:00 80 22 128/77 99 02/06/23 21:00 02/06/23 20:31 72 23 140/92 99 02/06/23 20:30 74 14 02/06/23 20:00 66 13 146/75 H 100 02/06/23 19:30 53 L 19 123/71 100 02/06/23 19:10 57 L 16 161/93 H 100 02/06/23 19:00 02/06/23 19:09 57 L Pulse Ox O2 Del Method O2 Del Method 02/07/23 02:05 02/07/23 01:59 Room Air 02/07/23 01:34 02/07/23 01:30 Room Air 02/07/23 01:00 Room Air 02/07/23 00:40 02/06/23 23:59 99 Room Air 02/06/23 23:59 Room Air 02/06/23 22:29 Room Air 02/06/23 21:00 Room Air 02/06/23 21:00 Room Air 02/06/23 20:31 Room Air 02/06/23 20:30 02/06/23 20:00 Room Air 02/06/23 19:30 Room Air 02/06/23 19:10 Room Air 02/06/23 19:00 Room Air 02/06/23 19:09 Resident Activity Tracking Resident Involvement: Resident Care Provided Care Provided: Adult Hospital Medicine
--- NOTE | 2023-02-07 08:18 | Pharmacy Report ---
Pharmacy PK ABX Note - Date of Service February 07, 2023 - Assessment and Plan Assessment 17 year old M receiving IV Vancomycin, Acyclovir, and ceftriaxone for treatment of viral meningitis. Pertinent microbiologic data includes: Cerebrospinal fluid- WBC 18, glucose 54, total protein 65.0. Enterovirus detected, HHV-6 detected, Parechovirus detected Serology BioFire positive for enterovirus/rhinovirus Of note, patient is currently in the concussion protocol per the [employer] football team. Plan Vancomycin * Loading dose: 2000 mg IV x 1 * Maintenance dose: 1250 mg IV every 8 hours * Regimen is predicted to achieve target AUC/MEG of 400-600 mg/L.hr - likely closer to 600, in effort to achieve therapeutic levels sooner and for meningitis. * Trough level ordered for: 02/08/23 prior to the 1200 dose * Pharmacy has transitioned to AUC monitoring for vancomycin. AUC/MEG is the preferred PK/PD target and is associated with decreased risk of nephrotoxicity compared to traditional trough targets. Acyclovir 900mg IV Q8H Ceftriaxone 2g IV Q12H Pharmacy will continue to follow and will adjust dose/frequency as necessary. Thank you.
[2023-02-07] MEDS: cefTRIAXone SODIUM 2,000 MG in DEXTROSE 5 % MINI-B 50 ML IV SCH ×2 (08:44→20:28)
--- NOTE | 2023-02-07 17:26 | Billing Data ---
Date of Service February 07, 2023 Coding Level of Care Code 60053 SUB INP/OBS CARE MIN
[2023-02-07] MEDS ORDERED: COUGH DROP (SUGAR FREE) LOZ 24 LOZ/1 BOX BUCCAL PRN (22:03)
[2023-02-07 23:03] LABS: A calco-baum cmplx NotReported Not Detected (NotDetected); Bact fragilis Not Reported Not Detected (NotDetected); C auris Not Reported Not Detected (NotDetected); Calbicans Not Reported Not Detected (NotDetected); Candida glabrata Not Reported Not Detected (NotDetected); Candida krusei Not Reported Not Detected (NotDetected); Cneoformans/gatti Not Reported Not Detected (NotDetected); Cparapsilosis Not Reported Not Detected (NotDetected); E cloacae compx Not Reported Not Detected (NotDetected); Efaecalis Not Reported Not Detected (NotDetected); Efaecium Not Reported Not Detected (NotDetected); Enterobacterales Not Reported Not Detected (NotDetected); Escherichia coli Not Reported Not Detected (NotDetected); H influenzae Not Reported Not Detected (NotDetected); K aerogenes Not Reported Not Detected (NotDetected); Koxytoca Not Reported Not Detected (NotDetected); Kpneumoniae grp Not Reported Not Detected (NotDetected); Lmonocyt Not Reported Not Detected (NotDetected); N meningitidis Not Reported Not Detected (NotDetected); P aeruginosa Not Reported Not Detected (NotDetected); Proteus spp Not Reported Not Detected (NotDetected); Salmonella spp Not Reported Not Detected (NotDetected); Smarcescens Not Reported Not Detected (NotDetected); Staph lugdunensis Not Reported Not Detected (NotDetected); Staph spp. Not Reported DETECTED (NotDetected); Staphaureus Not Reported Not Detected (NotDetected); Staphepi Not Reported DETECTED (NotDetected); Staphylococcus spp. DETECTED (NotDetected); Stenmaltophilia Not Reported Not Detected (NotDetected); Strep agal(GrpB) Not Reported Not Detected (NotDetected); Strep pneum Not Reported Not Detected (NotDetected); Strep pyog (GrpA) Not Reported Not Detected (NotDetected); Strep spp Not Reported Not Detected (NotDetected); mecAC Resistant Gene Not Detected (NotDetected)
[2023-02-07 23:13] LABS: Staphylococcus epidermidis DETECTED (NotDetected)
[2023-02-08] MEDS: VANCOMYCIN HCL 1,250 MG in SODIUM CHLORIDE 0.9% 250 ML IV SCH (04:05)
--- NOTE | 2023-02-08 07:01 | Hospitalist Progress Note ---
Date of Service February 08, 2023 Assessment & Plan (1) Viral meningitis: Plan Patient is a 17-year-old male who presents to the hospital with severe headache and nausea. Symptoms started over the last week and got significantly worse on Sunday. Of note patient suffered a concussion at practice last Sunday and has been in concussion protocol. He has mostly stayed at home and rested during this time. 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 #Viral meningitis -Head CT negative -Cerebrospinal fluid -WBC 18, glucose 54, total protein 65.0. Enterovirus detected, HHV-6 detected, Parechovirus detected -Serology BioFire positive for enterovirus/rhinovirus -In the ED received: vancomycin, Toradol, dexamethasone, Zofran, ceftriaxone, acyclovir, and Tylenol. -Initially started on vancomycin, ceftriaxone, acyclovir, and dexamethasone. -Infectious disease curbside: -Continue with vancomycin and ceftriaxone. Follow cultures from cerebrospinal fluid. -Given that the patient is not immunocompromise and is not encephalopathic, will manage viral meningitis with supportive care. -We will follow cultures, if negative then may return home tomorrow and continue supportive care. -Patient will need follow-up with [facility] orthopedics after discharge regarding return to play. Given that patient is currently in concussion protocol would advise caution that postconcussion symptoms may be related to meningitis rather than concussion and that any postconcussion symptoms should be evaluated by a physician. Admission and Anticipated Discharge Date Admission Date: February 06, 2023 Results & Data Results & Data Vital Signs (Past 12 Hours) Vital Signs Temp Pulse Pulse Resp BP Pulse Ox O2 Del Method 02/08/23 04:08 36.5 C 54 L 16 124/61 98 Room Air 02/07/23 22:33 48 L 02/07/23 22:00 36.7 C 52 L 18 145/84 H 98 Room Air 02/07/23 19:58 36.6 C 51 L 18 145/78 H 99 Room Air
[2023-02-08 07:40] LABS: Basophils # (auto) 0.02 K/uL (0.00-0.20); Basophils % (auto) 0.2 %; Eosinophils # (auto) 0.11 K/uL (0.00-0.50); Eosinophils % (auto) 1.3 %; Hemoglobin 14.8 g/dl (14.0-18.0); Immature Granulocytes # (auto) 0.14 K/uL (0.01-0.20); Immature Granulocytes % (auto) 1.7 %; Lymphocytes # (auto) 2.88 K/uL (1.20-3.40); Mean Corpuscular Hemoglobin 30.8 pg (25.0-34.0); Mean Corpuscular Hgb Conc 35.2 g/dL (32.0-36.0); Mean Corpuscular Volume 87.3 fL (80.0-100.0); Mean Platelet Volume 11.3 fL (9.4-12.4); Monocytes # (auto) 0.81 K/uL (0.11-0.59); Monocytes % (auto) 9.6 %; Neutrophils # (auto) 4.51 K/uL (1.40-6.50); Neutrophils % (auto) 53.2 %; Platelet Count 209 K/uL (130-400); RDW Coefficient of Variation 13.1 % (11.5-14.5); Red Blood Count 4.81 M/uL (4.70-6.10); White Blood Count 8.47 K/ul (4.8-10.8)
[2023-02-08] MEDS: cefTRIAXone SODIUM 2,000 MG in DEXTROSE 5 % MINI-B 50 ML IV SCH (08:02)
[2023-02-08 08:12] LABS: BUN Creatinine Ratio 19.6 (10-20); Calcium 9.7 mg/dl (8.6-10.3); Creatinine Clr Calc Pharmacy 160.1 ml/min; Est GFR (African American) 122.9 ml/min; Est GFR (Non-African American) 106.1 ml/min
[2023-02-08] MEDS ORDERED: VANCOMYCIN LEVEL ONE ×2 (10:30→11:30)
--- NOTE | 2023-02-08 11:05 | Discharge Summary ---
Date of Service February 08, 2023 Admission HPI Per Admitting Provider The patient is a 17-year-old male with no significant past medical history, who presents to the emergency department with worsening symptoms over the past week, which significantly intensified with severe headache with nausea this morning. He denies any recent sick exposures that he is aware of, but does travel routinely with the football team. He reports that he was diagnosed with strep throat at the onset of the symptoms, and was treated with a course of antibiotics which he did complete as directed Admission Exam Per Admitting Provider The patient is awake, alert and oriented 3, well developed and well nourished, normocephalic and atraumatic, lying in bed and in no acute distress. HEENT--PERRL, EOMI, mucous membranes and oropharynx normal Neck--supple. No JVD. No bruits. Thyroid normal, trachea midline, no adenopathy. Heart--normal S1 and S2. No murmurs, rubs or gallops. Lungs--clear bilaterally, no respiratory distress, no accessory muscle use. Abdomen--normal bowel sounds and soft. Nontender. Nondistended, no hernias or masses, no organomegaly. Extremities--no cyanosis or clubbing. No edema. There are good distal pulses b/l. Dermatologic--normal skin turgor, normal color, no abnormal lymph nodes, no rash. Neurologic--cranial nerves II through XII grossly intact. Rheumatologic--normal range of motion. Psychiatric--normal affect. Principal Diagnosis Viral meningitis Discharge Exam Constitutional: well-appearing, no acute distress HEENT: NCAT, no conjunctival injection CV: regular rhythm, no murmur appreciated, extremities well-perfused, no LE edema Resp: CTABL, no wheezes/rales/rhonchi appreciated, no increased work of breathing GI: soft, nondistended, nontender, BS normoactive MSK: no gross deformities appreciated Skin: warm, dry, no rash appreciated Neuro: alert, oriented, no focal neurologic deficit appreciated Discharge Data Allergies Allergy/AdvReac Type Severity Reaction Status Date / Time amoxicillin Allergy Intermediate Hives Unverified 02/06/23 14:50 Consultations 02/06/23 19:14 ED Decision to Admit Stat Ordered Studies 02/06/23 13:16 CT head/brain wo con Stat 02/06/23 14:42 IR lumbar puncture diagnostic Stat Head CT 02/06/23 13:16 CT OF THE HEAD WITHOUT CONTRAST CLINICAL HISTORY: Headache. Pre LP. COMPARISON STUDY: No previous studies for comparison. CT DOSE: 625.8 mGy.cm TECHNIQUE: Helical axial images of the head were obtained without IV contrast. Automated exposure control was utilized for the study. A dose lowering technique was utilized adhering to the principles of ALARA. FINDINGS: No acute intracranial hemorrhage, midline shift or mass effect is present. The ventricular system is unremarkable. The basal cisterns are patent. No extra-axial collections are present. There are no findings to suggest acute dural sinus thrombosis or acute territorial infarct. There are no significant calvarial abnormalities. There are small mucous retention cysts within the right maxillary and left sphenoid sinuses. IMPRESSION: No acute intracranial findings. ACT 112: Negative or not required by law. Electronically signed by: Min Jacobs M.D. 02/06/2023 2:08 PM Lumbar Puncture 02/06/23 14:42 Lumbar puncture under fluoroscopy INDICATION: Headache; evaluate for meningitis PROCEDURE: Procedure and risks were explained. Informed consent was obtained. A final timeout was completed. The patient was placed prone on the fluoroscopic examination table. The lower lumbar region was prepped and draped in sterile fashion. 1% lidocaine was utilized for skin anesthesia. Utilizing fluoroscopic guidance, a 22-gauge spinal needle was advanced into the intrathecal space at the L2-3 disc space level. 2 spot images were obtained. Approximately 8 mL of clear CSF fluid was removed and sent to lab for analysis. The needle was removed and Band-Aid applied. The patient tolerated the procedure well. Vital signs will be monitored postprocedure. Total fluoroscopy time 0.2 minutes. DAP is 0.0379 mcGy/m2. IMPRESSION: Lumbar puncture as above. Performed, dictated, and signed by Gentry Patel PA-C; to be co-signed by Dr. Timmy Leon. Electronically signed by: Timmy Leon M.D. 02/06/2023 4:21 PM Microbiology 02/06/23 19:15 Blood Aerobic Blood Culture - Preliminary No growth in Aerobic bottle after 24 hours. 02/06/23 19:15 Blood Anaerobic Blood Culture - Preliminary Coag neg staph not lugdunensis 02/06/23 15:25 Cerebral Spinal Fluid Gram Stain - Final 02/06/23 15:25 Cerebral Spinal Fluid CSF Culture - Final No growth 02/06/23 18:45 Blood Aerobic Blood Culture - Preliminary No growth in Aerobic bottle after 24 hours. 02/06/23 18:45 Blood Anaerobic Blood Culture - Preliminary No growth in Anaerobic bottle after 24 hours. Labs 02/06/23 02/06/23 02/06/23 10:33 10:33 10:33 WBC 7.62 RBC 5.23 Hgb 16.2 Hct 46.1 MCV 88.1 MCH 31.0 MCHC 35.1 RDW Std Deviation 42.5 RDW Coeff of Shlomo 13.1 Plt Count 222 MPV 11.6 Immature Gran % (Auto) 0.4 Neut % (Auto) 64.4 Lymph % (Auto) 23.4 Ray % (Auto) 9.2 Eos % (Auto) 2.2 Baso % (Auto) 0.4 Neut # (Auto) 4.91 Lymph # (Auto) 1.78 Ray # (Auto) 0.70 H Eos # (Auto) 0.17 Baso # (Auto) 0.03 Immature Gran # (Auto) 0.03 Sodium Cancelled Cancelled Potassium Cancelled Cancelled Chloride Cancelled Cancelled Carbon Dioxide Cancelled Cancelled Anion Gap Cancelled Cancelled BUN Cancelled Cancelled Creatinine Cancelled Cancelled Est Cr Clr Drug Dosing Cancelled Cancelled Est GFR ( Amer) Cancelled Cancelled Est GFR (Non-Af Amer) Cancelled Cancelled BUN/Creatinine Ratio Cancelled Cancelled Glucose Cancelled Cancelled Lactate Calcium Cancelled Cancelled Magnesium Total Bilirubin Cancelled Cancelled AST Cancelled Cancelled ALT Cancelled Cancelled Alkaline Phosphatase Cancelled Cancelled Total Protein Cancelled Cancelled Albumin Cancelled Cancelled Globulin Cancelled Cancelled Albumin/Globulin Ratio Cancelled Cancelled Fluid Comment CSF Appearance CSF Color Xanthrochromic CSF WBC (Auto) CSF WBC CSF RBC (Auto) CSF RBC CSF Cell Count Tube # CSF Mononuclear WBCs % CSF Polynuclear WBCs % CSF Chemistry Tube # CSF Glucose CSF Total Protein CSF C.neoform/gat PCR CSF CMV DNA (PCR) CSF Enterovirus (PCR) CSF E. coli K1 (PCR) CSF H. influenzae (PCR) CSF HSV I (PCR) CSF HSV II (PCR) CSF HHV 6 (PCR) CSF L.monocytogenes PCR CSF N. meningitidis PCR CSF Parechovirus (PCR) CSF S. agalactiae (PCR) CSF S. pneumoniae (PCR) CSF VZV DNA (PCR) Random Vancomycin Adenovirus (PCR) B. pertussis DNA (PCR) B.parapertussis DNA PCR C. pneumoniae DNA (PCR) Coronavirus OC43 (PCR) Coronavirus HKU1 (PCR) Coronavirus 229E (PCR) SARS-CoV-2 (PCR) Coronavirus NL63 (PCR) Human Metapneumovir PCR Influenza Type A (PCR) Influenza Type B (PCR) M. pneumoniae (PCR) Parainfluenza 1 (PCR) Parainfluenza 2 (PCR) Parainfluenza 3 (PCR) Parainfluenza 4 (PCR) RSV (PCR) Entero/Rhino (PCR) Staphylococcus sp PCR mecA/C-Methicil Resis Gene Staph epidermidis (PCR) Bld Cult ID Panel PCR 02/06/23 02/06/23 02/06/23 12:46 13:36 15:25 WBC RBC Hgb Hct MCV MCH MCHC RDW Std Deviation RDW Coeff of Shlomo Plt Count MPV Immature Gran % (Auto) Neut % (Auto) Lymph % (Auto) Ray % (Auto) Eos % (Auto) Baso % (Auto) Neut # (Auto) Lymph # (Auto) Ray # (Auto) Eos # (Auto) Baso # (Auto) Immature Gran # (Auto) Sodium 137 Potassium 4.7 Chloride 103 Carbon Dioxide 29 Anion Gap 5 BUN 15 Creatinine 1.06 Est Cr Clr Drug Dosing 141.3 Est GFR ( Amer) 117.3 Est GFR (Non-Af Amer) 101.2 BUN/Creatinine Ratio 14.2 Glucose 94 Lactate Calcium 10.3 Magnesium Total Bilirubin 0.5 AST 24 ALT 26 Alkaline Phosphatase 101 Total Protein 7.3 Albumin 4.5 Globulin 2.8 Albumin/Globulin Ratio 1.6 Fluid Comment CSF Appearance CSF Color Xanthrochromic CSF WBC (Auto) CSF WBC CSF RBC (Auto) CSF RBC CSF Cell Count Tube # CSF Mononuclear WBCs % CSF Polynuclear WBCs % CSF Chemistry Tube # CSF Glucose CSF Total Protein CSF C.neoform/gat PCR Not Detected CSF CMV DNA (PCR) Not Detected CSF Enterovirus (PCR) DETECTED A* CSF E. coli K1 (PCR) Not Detected CSF H. influenzae (PCR) Not Detected CSF HSV I (PCR) Not Detected CSF HSV II (PCR) Not Detected CSF HHV 6 (PCR) DETECTED A* CSF L.monocytogenes PCR Not Detected CSF N. meningitidis PCR Not Detected CSF Parechovirus (PCR) DETECTED A* CSF S. agalactiae (PCR) Not Detected CSF S. pneumoniae (PCR) Not Detected CSF VZV DNA (PCR) Not Detected Random Vancomycin Adenovirus (PCR) Not Detected B. pertussis DNA (PCR) Not Detected B.parapertussis DNA PCR Not Detected C. pneumoniae DNA (PCR) Not Detected Coronavirus OC43 (PCR) Not Detected Coronavirus HKU1 (PCR) Not Detected Coronavirus 229E (PCR) Not Detected SARS-CoV-2 (PCR) Not Detected Coronavirus NL63 (PCR) Not Detected Human Metapneumovir PCR Not Detected Influenza Type A (PCR) Not Detected Influenza Type B (PCR) Not Detected M. pneumoniae (PCR) Not Detected Parainfluenza 1 (PCR) Not Detected Parainfluenza 2 (PCR) Not Detected Parainfluenza 3 (PCR) Not Detected Parainfluenza 4 (PCR) Not Detected RSV (PCR) Not Detected Entero/Rhino (PCR) DETECTED A* Staphylococcus sp PCR mecA/C-Methicil Resis Gene Staph epidermidis (PCR) Bld Cult ID Panel PCR 02/06/23 02/06/23 02/06/23 15:25 15:25 18:45 WBC RBC Hgb Hct MCV MCH MCHC RDW Std Deviation RDW Coeff of Shlomo Plt Count MPV Immature Gran % (Auto) Neut % (Auto) Lymph % (Auto) Ray % (Auto) Eos % (Auto) Baso % (Auto) Neut # (Auto) Lymph # (Auto) Ray # (Auto) Eos # (Auto) Baso # (Auto) Immature Gran # (Auto) Sodium Potassium Chloride Carbon Dioxide Anion Gap BUN Creatinine Est Cr Clr Drug Dosing Est GFR ( Amer) Est GFR (Non-Af Amer) BUN/Creatinine Ratio Glucose Lactate 1.5 Calcium Magnesium Total Bilirubin AST ALT Alkaline Phosphatase Total Protein Albumin Globulin Albumin/Globulin Ratio Fluid Comment CSF Appearance Clear CSF Color Colorless Xanthrochromic No xanthochromia CSF WBC (Auto) 13 H* CSF WBC 18 H* CSF RBC (Auto) 0 CSF RBC 2 CSF Cell Count Tube # 3 CSF Mononuclear WBCs % 90 CSF Polynuclear WBCs % 10 CSF Chemistry Tube # 1 CSF Glucose 54 CSF Total Protein 65.0 H CSF C.neoform/gat PCR CSF CMV DNA (PCR) CSF Enterovirus (PCR) CSF E. coli K1 (PCR) CSF H. influenzae (PCR) CSF HSV I (PCR) CSF HSV II (PCR) CSF HHV 6 (PCR) CSF L.monocytogenes PCR CSF N. meningitidis PCR CSF Parechovirus (PCR) CSF S. agalactiae (PCR) CSF S. pneumoniae (PCR) CSF VZV DNA (PCR) Random Vancomycin Adenovirus (PCR) B. pertussis DNA (PCR) B.parapertussis DNA PCR C. pneumoniae DNA (PCR) Coronavirus OC43 (PCR) Coronavirus HKU1 (PCR) Coronavirus 229E (PCR) SARS-CoV-2 (PCR) Coronavirus NL63 (PCR) Human Metapneumovir PCR Influenza Type A (PCR) Influenza Type B (PCR) M. pneumoniae (PCR) Parainfluenza 1 (PCR) Parainfluenza 2 (PCR) Parainfluenza 3 (PCR) Parainfluenza 4 (PCR) RSV (PCR) Entero/Rhino (PCR) Staphylococcus sp PCR mecA/C-Methicil Resis Gene Staph epidermidis (PCR) Bld Cult ID Panel PCR 02/06/23 02/07/23 02/07/23 19:15 05:05 05:05 WBC 9.40 RBC 4.88 Hgb 15.0 Hct 43.3 MCV 88.7 MCH 30.7 MCHC 34.6 RDW Std Deviation 41.5 RDW Coeff of Shlomo 12.6 Plt Count 238 MPV 11.4 Immature Gran % (Auto) 0.5 Neut % (Auto) 80.3 Lymph % (Auto) 14.3 Ray % (Auto) 4.8 Eos % (Auto) 0.0 Baso % (Auto) 0.1 Neut # (Auto) 7.55 H Lymph # (Auto) 1.34 Ray # (Auto) 0.45 Eos # (Auto) 0.00 Baso # (Auto) 0.01 Immature Gran # (Auto) 0.05 Sodium 136 Potassium 4.2 Chloride 106 Carbon Dioxide 23 Anion Gap 7 BUN 21 Creatinine 1.04 Est Cr Clr Drug Dosing 157.1 Est GFR ( Amer) 120.1 Est GFR (Non-Af Amer) 103.6 BUN/Creatinine Ratio 20.2 H Glucose 121 H Lactate Calcium 9.7 Magnesium 1.9 Total Bilirubin 0.4 AST 19 ALT 22 Alkaline Phosphatase 90 Total Protein 6.9 Albumin 4.3 Globulin 2.6 Albumin/Globulin Ratio 1.7 Fluid Comment CSF Appearance CSF Color Xanthrochromic CSF WBC (Auto) CSF WBC CSF RBC (Auto) CSF RBC CSF Cell Count Tube # CSF Mononuclear WBCs % CSF Polynuclear WBCs % CSF Chemistry Tube # CSF Glucose CSF Total Protein CSF C.neoform/gat PCR CSF CMV DNA (PCR) CSF Enterovirus (PCR) CSF E. coli K1 (PCR) CSF H. influenzae (PCR) CSF HSV I (PCR) CSF HSV II (PCR) CSF HHV 6 (PCR) CSF L.monocytogenes PCR CSF N. meningitidis PCR CSF Parechovirus (PCR) CSF S. agalactiae (PCR) CSF S. pneumoniae (PCR) CSF VZV DNA (PCR) Random Vancomycin Adenovirus (PCR) B. pertussis DNA (PCR) B.parapertussis DNA PCR C. pneumoniae DNA (PCR) Coronavirus OC43 (PCR) Coronavirus HKU1 (PCR) Coronavirus 229E (PCR) SARS-CoV-2 (PCR) Coronavirus NL63 (PCR) Human Metapneumovir PCR Influenza Type A (PCR) Influenza Type B (PCR) M. pneumoniae (PCR) Parainfluenza 1 (PCR) Parainfluenza 2 (PCR) Parainfluenza 3 (PCR) Parainfluenza 4 (PCR) RSV (PCR) Entero/Rhino (PCR) Staphylococcus sp PCR DETECTED A mecA/C-Methicil Resis Gene Not Detected Staph epidermidis (PCR) DETECTED A Bld Cult ID Panel PCR See PCR Comment 02/08/23 02/08/23 02/08/23 07:01 07:01 11:39 WBC 8.47 RBC 4.81 Hgb 14.8 Hct 42.0 MCV 87.3 MCH 30.8 MCHC 35.2 RDW Std Deviation 42.0 RDW Coeff of Shlomo 13.1 Plt Count 209 MPV 11.3 Immature Gran % (Auto) 1.7 Neut % (Auto) 53.2 Lymph % (Auto) 34.0 Ray % (Auto) 9.6 Eos % (Auto) 1.3 Baso % (Auto) 0.2 Neut # (Auto) 4.51 Lymph # (Auto) 2.88 Ray # (Auto) 0.81 H Eos # (Auto) 0.11 Baso # (Auto) 0.02 Immature Gran # (Auto) 0.14 Sodium 139 Potassium 4.0 Chloride 108 H Carbon Dioxide 26 Anion Gap 5 BUN 20 Creatinine 1.02 Est Cr Clr Drug Dosing 160.1 Est GFR ( Amer) 122.9 Est GFR (Non-Af Amer) 106.1 BUN/Creatinine Ratio 19.6 Glucose 95 Lactate Calcium 9.7 Magnesium Total Bilirubin AST ALT Alkaline Phosphatase Total Protein Albumin Globulin Albumin/Globulin Ratio Fluid Comment CSF Appearance CSF Color Xanthrochromic CSF WBC (Auto) CSF WBC CSF RBC (Auto) CSF RBC CSF Cell Count Tube # CSF Mononuclear WBCs % CSF Polynuclear WBCs % CSF Chemistry Tube # CSF Glucose CSF Total Protein CSF C.neoform/gat PCR CSF CMV DNA (PCR) CSF Enterovirus (PCR) CSF E. coli K1 (PCR) CSF H. influenzae (PCR) CSF HSV I (PCR) CSF HSV II (PCR) CSF HHV 6 (PCR) CSF L.monocytogenes PCR CSF N. meningitidis PCR CSF Parechovirus (PCR) CSF S. agalactiae (PCR) CSF S. pneumoniae (PCR) CSF VZV DNA (PCR) Random Vancomycin 7.3 L Adenovirus (PCR) B. pertussis DNA (PCR) B.parapertussis DNA PCR C. pneumoniae DNA (PCR) Coronavirus OC43 (PCR) Coronavirus HKU1 (PCR) Coronavirus 229E (PCR) SARS-CoV-2 (PCR) Coronavirus NL63 (PCR) Human Metapneumovir PCR Influenza Type A (PCR) Influenza Type B (PCR) M. pneumoniae (PCR) Parainfluenza 1 (PCR) Parainfluenza 2 (PCR) Parainfluenza 3 (PCR) Parainfluenza 4 (PCR) RSV (PCR) Entero/Rhino (PCR) Staphylococcus sp PCR mecA/C-Methicil Resis Gene Staph epidermidis (PCR) Bld Cult ID Panel PCR Hospital Course (1) Viral meningitis: Patient is a 17-year-old male who presents to the hospital with severe headache and nausea. Symptoms started over the last week and got significantly worse on Sunday. Of note patient suffered a concussion at practice last Sunday and has been in concussion protocol. He has mostly stayed at home and rested during this time. 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 #Viral meningitis -Head CT negative -Cerebrospinal fluid: WBC 18, glucose 54, total protein 65.0. Enterovirus detected, HHV-6 detected, Parechovirus detected -Serology [employer] positive for enterovirus/rhinovirus and Staph epidermidis. -Initially started on vancomycin, ceftriaxone, acyclovir, and dexamethasone. -Infectious disease curbside: Given that the patient is not immunocompromise and is not encephalopathic, will manage viral meningitis with supportive care. -Blood cultures grew 1 out of 2 for coagulase-negative staph. PCR positive for staph epidermidis. This most likely is contamination rather than a true blood- borne infection. Should have follow-up with Dr. Hannah regarding final culture results. -Patient without any more symptoms such as headache. Vital signs are stable. We will discontinue antibiotics, antivirals, and dexamethasone. Patient should continue with supportive care at home. Should follow-up with the [facility] orthopedic group within 5 days. Total Time Total Time Spent Total Time Spent (In Minutes): <30 Discharge Plan Discharge Items Patient Disposition: Home - Self-Care Reason For Visit: VIRAL MENINGITIS Discharge Diagnosis: Viral meningitis Condition on Discharge: Good Activity: Resume your previous activity Non-emergency contact: Primary Care Provider Call non-emergency contact if: you have any medication questions, your pain is unusual for you and your temperature is above 101.5 Follow-up/Referrals: Donnell Hannah MD [Surgeon] - [facility] [Primary Care Provider] - Diet: Regular Addtl Attending Provider Instructions: You were admitted to the hospital for viral meningitis. You were treated with supportive care and your symptoms resolved. A discharge summary will be sent to Dr. Hannah. Follow-up appointments: * You should follow-up with Dr. Hannah within the next 5 days. He will follow-up on your blood cultures results. If you do not hear from him or his office within the next 3 days, please call his office at [phone]. * Keep all your follow-up appointments as already scheduled. If you cannot make an appointment, notify your provider. Medications: Your medication list has been reviewed and reconciled upon discharge to ensure accuracy and continuity of care. An updated list of all your medications is included with your hospital discharge paperwork. Please review this list closely, and make note of any changes. * No medication changes were made during your stay. CONTACT YOUR PRIMARY CARE PROVIDER if you experience any of the following: * Worsening of symptoms * Fever, chills, or fatigue * Difficulty following your treatment plan. CALL 911 OR GO TO THE EMERGENCY DEPARTMENT if you experience any of the follo wing: * Sudden, severe abdominal pain or nausea/vomiting * Severe chest pain, or chest pain that radiates (moves) to your jaw or arm * Sudden, severe shortness of breath or difficulty breathing Thank you for allowing us to participate in your care. Pending Studies at Discharge: Yes Studies:: Follow-up on blood cultures Stand-Alone Forms: [facility], Smoking Cessation Medications and DC Order Prescriptions: Discontinued Ibuprofen Cold-Sinus(with PSE) 30-200 mg Tablet 1 tab PO Q4H PRN (Reason: cold) Discharge Orders: Discharge Order (Routine); Ordered 02/08/23 Ordered By: Adis Nova Admission Data Admit Date/Time: 02/06/23 20:12 Attending Provider: Ezekiel Vicente Admit Provider: Casey Orr Primary Care Provider: [facility] Other Providers: Casey Orr Other Interventions: Discharge Summary Assessment (RN) Last Done: 02/08/23 11:45 Supervising Physician Co-Signing Physician Notes I personally examined the patient and verified all perez points of history and exam, discussed case, and agree with decision making with Dr Nova feeling good overall. would like to go home. Updated extensively, and updated sports med physician supervising his care after discharge. vitals noted nad heent nc at mmm breathing unlabored no accessory muscles good effort skin no rashes no pallor or icterus. labs/diagnostics noted viral meningitis - Culture negativesafe off antibiotics. On review, no need for antivirals or steroidswhile HHV-6 might require antiviral treatment in an encephalitis situation or immunocompromised patient, he shows neither, and is doing extremely well. blood culture shows 1 out of 2, and PCR testing shows it to likely be Staph epidermidiseither way, appears to clearly be a contaminant. We will follow culture results, but patient comfortable going home with the anticipation it is likely a contaminant and that we would call him back if the situation were to change. Resident Activity Tracking Resident Involvement: Resident Care Provided Care Provided: Adult Hospital Medicine
--- NOTE | 2023-02-08 16:38 | Billing Data ---
Date of Service February 08, 2023 Coding Level of Care Code 35350 IN/OBS DISCH 30 MIN/LESS
== END 2023-02-08 12:00 | disposition home or self-care (01) | DRG 76 ==
LOC: ED 09:41 → SUATTDRO 20:12 → INTOOBSV 20:12 → EDINP 20:12 → 2W 02-07 01:25